=== PATIENT | female | born 1980 | race Caucasian/White ===

== ENCOUNTER 2024-01-17 09:23 | Emergency (ER) | payer OTHER ==
[~2024-01-17] VITALS: Ht 157.5 cm; Wt 66.4 kg
[~2024-01-17 09:23] MED LIST: FIORICET 325 MG1 TA1 PO
[2024-01-17 09:28] VITALS: BP 129/86; TEMP 98.2
[2024-01-17] MEDS ORDERED: droPERidol 2.5 MG/ML 2 ML VIAL IV ONE (10:00)
[2024-01-17] MEDS ORDERED: diphenhydrAMINE 50 MG/ML 1 ML VIAL IV ONE (10:00)
[2024-01-17] MEDS ORDERED: LR 1,000 ML IV ONE (10:00)
[2024-01-17] MEDS ORDERED: dexAMETHasone 10 MG/ML VIAL IV ONE (10:15)
[2024-01-17] MEDS ORDERED: Ketorolac 15 MG/ML VIAL IV ONE (10:15)
[2024-01-17 10:43] LABS: BASO % 0.7 % (0.0-2.0); EOS % 0.7 % (0.0-4.0); GRAN # 3.7 K/mm3 (1.4-6.5); GRAN % 60.6 % (42.2-75.2); HEMATOCRIT 37.4 % (37.0-47.0); HEMOGLOBIN 13.2 g/dl (12.5-16.0); LYMPH # 1.8 K/mm3 (1.2-3.4); LYMPH % 30.3 % (20.0-51.0); MEAN CELL VOLUME 92 fl (80.0-100.0); MEAN CORPUSCULAR HEMOGLOBIN 32 pg (27-31); MEAN CORPUSCULAR HGB CONC 35 g/dl (33.0-37.0); MEAN PLATELET VOLUME 8.9 fl (7.4-10.4); MONO # 0.5 K/mm3 (0.1-0.6); MONO % 7.4 % (1.7-9.3); PLATELET COUNT 365 K/mm3 (130-400); RED BLOOD COUNT 4.08 M/mm3 (4.10-5.30); REDCELL DISTRIBUTION WIDTH-CV 11.8 % (11.5-14.5)
[2024-01-17 10:49] LABS: ERYTHROCYTE SEDIMENTATION RATE 19 mm/hr (0-20)
[2024-01-17 11:02] LABS: ALBUMIN 4.3 g/dL (3.5-5.0); BILIRUBIN,TOTAL 0.6 mg/dL (0.2-1.2); C-REACTIVE PROTEIN 0.2 mg/dL (0.00-0.50); CALCIUM 9.5 mg/dL (8.4-10.2); CREATININE, serum 0.76 mg/dL (0.57-1.11); POTASSIUM 3.7 mEq/L (3.5-4.5); TOTAL PROTEIN 7.7 g/dl (6.2-8.1)
[2024-01-17] MEDS ORDERED: LORazepam 2 MG/ML 1 ML VIAL IV ONE (12:00)
[2024-01-17] MEDS ORDERED: DESYREL 100MG100 MG PO (12:06)
[2024-01-17 12:27] VITALS: PULSE 67
== END 2024-01-17 12:28 | disposition home or self-care (01) ==
LOC: COL.ER 09:23
PROVIDERS: Family Medicine
DX: G47.00 Insomnia, unspecified (principal); H53.149 Visual discomfort, unspecified; Z88.8 Allergy status to other drugs, medicaments and biological substances
CPT/HCPCS: J0780; J1100; J1200; J1885; J2060; J7120